=== PATIENT | male | born 1970 | race Caucasian/White ===

== ENCOUNTER 2018-05-19 05:31 | Day surgery (SDC) | payer OTHER ==
[2018-05-18 13:24] VITALS: BMI 26.5
[2018-05-19] MEDS ORDERED: ceFAZolin SODIUM 1 GM VIAL IVPB ONE (08:25)
--- NOTE | 2018-05-19 10:01 | HP ---
Satellite [facility] - Chief Complaint Chief Complaint: left knee fx - Past Medical History Allergies/Adverse Reactions: Allergies Allergy/AdvReac Type Severity Reaction Status Date / Time No Known Allergies Allergy Verified 05/18/18 13:18 - Current Medications Current Medications: Home Medications Medication Instructions Recorded NK [No Known Home Medication] 05/18/18 Satellite Physical Exam - Physical Examination Vital Signs: Vital Signs Period Temp Pulse Resp BP Sys/Hamilton Pulse Ox Last 24 Hr 98.5 F 100 18 137/83 98 General Appearance: Well Nourished, Well Developed, Alert & Oriented x3 ENT: Clear Lung: Normal air movement Heart: Regular rate & rhythm Extremities: Other (left knee - + swelling, + ttp laterally, decr rom, nvi xrays show displaced lateral tibial plateau fx) Neurological: Intact, Alert, Oriented Satellite Impression/Plan - Impression/Plan Impression: left tibial plateau fx Operative Procedure: left tibial plateau orif Date to be Performed: 05/19/18
--- NOTE | 2018-05-19 10:03 | OP ---
Operative Note - Note: Operative Date: 05/19/18 ([facility]) Pre-Operative Diagnosis: left tibial plateau fx Operation: left tibial plateau orif, bone grafting Post-Operative Diagnosis: Same as Pre-op Surgeon: Daniel Lindsey Yarn Polishing Machine Operator: Kenyon Denise Anesthesiologist/COGNOS ANALYST: Renée Mac Anesthesia: Local, MAC Estimated Blood Loss (mls): 5 (tourniquet) Operative Report Dictated: Yes
[2018-05-19 10:29] VITALS: TEMP 97.6
[2018-05-19] MEDS ORDERED: ONDANSETRON 4 MG/2 ML VIAL IVPUSH PRN (10:48)
[2018-05-19] MEDS ORDERED: oxyCODONE HCL 5 MG TABLET PO PRN (10:48)
[2018-05-19] MEDS ORDERED: LACTATED RINGERS SOLUTION 1,000 ML IV SCH (11:00)
[2018-05-19 11:12] VITALS: PULSE 76
[2018-05-19] MEDS ORDERED: CEFAZOLIN 1 GM/D5W 1 GM/50 ML BAG IVPB ONE (11:51)
[2018-05-19 14:17] VITALS: BP 114/70
--- NOTE | 2018-05-19 15:05 | OP ---
DATE OF OPERATION: 05/19/2018 PREOPERATIVE DIAGNOSIS: Left depressed split lateral tibial plateau fracture. POSTOPERATIVE DIAGNOSIS: Left depressed split lateral tibial plateau fracture. PROCEDURE: Open reduction, internal fixation and bone grafting of the left lateral tibial plateau fracture. SURGICAL ATTENDING: Daniel Lindsey MD BUDGET AND POLICY ANALYST: SIOMARA Sumner ANESTHESIA: Regional and general. CLOSURE: [place] lateral tibial plateau plate with appropriate screws and 60 mL of cancellous chips with StimuBlast bone putty for defect, 0 Vicryl fascia, 2-0 subcutaneous, and 3-0 Monocryl subcuticular, with skin glue for skin. COMPLICATIONS: None. CONDITION: To recovery room in stable condition. DESCRIPTION OF OPERATIVE PROCEDURE: Patient was taken to the operating room on May 19, 2018. General anesthesia as well as regional anesthesia was administered by the anesthesiologist. IV Kefzol was administered prophylactically prior to the case. A well-padded tourniquet was placed at the left proximal thigh, and the left lower extremity was prepped and draped in the usual sterile fashion. The leg was exsanguinated with an Esmarch bandage and the tourniquet was inflated to 275 mmHg. A curved longitudinal incision on the lateral aspect of the proximal tibia was incised. Hemostasis was achieved with Bovie cautery. This was done after leg was exsanguinated with an Esmarch bandage and tourniquet was inflated to 275 mmHg. A curved longitudinal incision on the lateral aspect of the tibia was done, lateral to the tibial tubercle and then curving at the joint line. Flaps were made anteriorly and posteriorly. Subperiosteal dissection was done on proximal and lateral tibia until the fracture was entered and then was continued further posteriorly. The fracture was peeled open showing a huge defect. The entire lateral plateau was depressed into a large defect on the lateral side. The undersurface of the lateral meniscus was seen to be at the joint line. Using a wide osteotome, the articular surface and cancellous bones and block were elevated back up to the articular surface. This was confirmed by fluoroscopy. This produced a huge void below the elevated portion. This was filled with 60 mL of cancellous chips as well as StimuBlast putty. The split was then closed leaving as much soft tissue attached to it as possible. An 8-hole [place] lateral tibial plateau plate was then applied and pinned into place, confirmed by fluoroscopy in the AP and lateral plane, revealed excellent position of the plate with excellent reduction of the fracture. Multiple proximal and distal screws were then drilled, depth gauged, and screwed with the appropriate length and type of screws. Multiple proximal screws were of the locking variety. One distal screw was a nonlocking variety to synch the plate to the bone, and then the rest were of locking variety. Excellent placement of all hardware with excellent reduction of the fracture confirmed in the AP and lateral planes. Wound was irrigated. The fascia was then loosely closed using 0 Vicryl, 2-0 for subcutaneous, and 3-0 Monocryl subcuticular with skin glue for skin. Sterile pressure dressing followed by a knee immobilizer was applied. Tourniquet was deflated. Total tourniquet time was approximately 70 minutes. No complications. Yimi SANDERS/[id number]
== END 2018-05-19 13:15 | disposition home or self-care (01) ==
LOC: JASU-SURG 05:31
PROVIDERS: ATTEND Orthopaedic Surgery
PROC: 0QSH04Z Reposition Left Tibia with Internal Fixation Device, Open Approach (ICD-10-PCS; principal; 2018-05-19 08:00)
DX: S82.122A Displaced fracture of lateral condyle of left tibia, initial encounter for closed fracture (principal); X58.XXXA Exposure to other specified factors, initial encounter; Y93.9 Activity, unspecified; Y92.9 Unspecified place or not applicable; Y99.9 Unspecified external cause status
CPT/HCPCS: 76000-TC-FY; 94760